=== PATIENT | male | born 1940 | race Caucasian/White ===

== ENCOUNTER → 2019-10-13 | Outpatient (CLI) | payer OTHER | END | disposition home or self-care (01) | LOC: RAH 10:31 | PROVIDERS: ATTEND Internal Medicine Cardiovascular Disease | DX: Z13.6 Encounter for screening for cardiovascular disorders (principal) | CPT/HCPCS: 75571 ==

== ENCOUNTER → 2019-11-22 | Outpatient (CLI) | payer MEDICARE ==
[~2019-11-22] VITALS: Ht 175.3 cm; Wt 106.7 kg
[~2019-11-22] MED LIST: ALLO100T PO; AMLO-258 PO; ASPI-1443 PO; ATOR10TA69 PO; CEFUROXIME SODIUM 1.5 GM VIAL IVP SCH; CHLO25TA3 PO; DOCU50CA13 PO; LEVO75TA4 PO; LORA-997 PO; OMEG-148 PO; TAMS-1 PO; [UNRECOGNIZED DRUG - CODE] PO; gabapentin PO
[2019-11-22 10:25] VITALS: BP 154/67
[2019-11-22 10:50] LABS: BASOPHILS % (AUTO) 0.5 % (0.0-5.0); EOSINOPHILS % (AUTO) 2.6 % (0.0-8.0); HEMATOCRIT 39.8 % (42-54); LYMPHOCYTES % (AUTO) 17.7 % (21.0-51.0); MEAN CORPUSCULAR HEMOGLOBIN 25.6 pg (27.0-33.0); MEAN CORPUSCULAR HGB CONC 30.2 g/dL (32.0-36.0); MEAN CORPUSCULAR VOLUME 84.9 fL (79-99); MONOCYTES % (AUTO) 11.6 % (3.0-13.0); NEUTROPHILS % (AUTO) 67.2 % (40.0-77.0); PLATELET COUNT (AUTO) 243 K/uL (130-400); RED BLOOD CELL COUNT(AUTO) 4.69 MIL/uL (4.50-6.20); RED CELL DISTRIBUTION WIDTH 15.5 % (11.0-15.5); WHITE BLOOD COUNT (AUTO) 7.8 K/uL (4.8-10.8)
[2019-11-22 11:03] LABS: ALBUMIN 3.6 g/dL (3.5-5.0); BILIRUBIN,TOTAL 0.3 mg/dL (0.2-1.0); CREATININE 1.1 mg/dL (0.5-1.5); POTASSIUM 4.3 mmol/L (3.5-5.1)
[2019-11-22 11:08] LABS: INR 0.98 (0.85-1.15); PARTIAL THROMBOPLASTIN TIME 23.7 SEC (26.3-35.5); PROTHROMBIN TIME 10.6 SEC (9.6-11.6)
[2019-11-22 11:16] LABS: HEMOGLOBIN A1C 6.4 % (4.0-6.0)
== END | disposition home or self-care (01) ==
LOC: DAH 10:00 → EDSTATUS 11-25 09:00
PROVIDERS: ATTEND Thoracic Surgery (Cardiothoracic Vascular Surgery)
DX: Z01.818 Encounter for other preprocedural examination (principal); Z20.828 Contact with and (suspected) exposure to other viral communicable diseases; I65.23 Occlusion and stenosis of bilateral carotid arteries; Z95.1 Presence of aortocoronary bypass graft
CPT/HCPCS: 36415; 71046; 80053; 83036; 85025; 85610; 85730; 93005; 93880; 94010; A6260; U0003; 86850; 86900; 86901; 86922; J0697

== ENCOUNTER → 2019-11-24 | Outpatient (CLI) | payer MEDICARE ==
[~2019-11-24] MED LIST changes: -CEFUROXIME SODIUM 1.5 GM VIAL IVP SCH
== END | disposition home or self-care (01) ==
LOC: DAH 11-22 10:00
PROVIDERS: ATTEND Thoracic Surgery (Cardiothoracic Vascular Surgery)
DX: Z01.818 Encounter for other preprocedural examination (principal); I25.10 Atherosclerotic heart disease of native coronary artery without angina pectoris
CPT/HCPCS: 36415; 86850; 86900; 86901; 86922

== ENCOUNTER → 2020-05-25 | Outpatient (CLI) | payer MEDICARE | END | disposition home or self-care (01) | LOC: RAH 08:01 | PROVIDERS: ATTEND Internal Medicine Cardiovascular Disease | DX: R06.09 Other forms of dyspnea (principal) | CPT/HCPCS: 93306; 93356 ==

== ENCOUNTER → 2020-05-29 | Outpatient (CLI) | payer MEDICARE ==
[~2020-05-29] VITALS: Ht 177.8 cm; Wt 112.5 kg
[~2020-05-29] MED LIST changes: +REGADENOSON 0.4 MG/5 ML PF SYG IVP SCH
== END | disposition home or self-care (01) ==
LOC: SHCH 07:48
PROVIDERS: ATTEND Internal Medicine Cardiovascular Disease
DX: I51.7 Cardiomegaly (principal); I25.9 Chronic ischemic heart disease, unspecified; I25.10 Atherosclerotic heart disease of native coronary artery without angina pectoris
CPT/HCPCS: 78452; 93017; 96374; A9500 ×2

== ENCOUNTER 2020-06-12 05:44 | Day surgery (SDC) | payer MEDICARE ==
[2020-06-09 13:20] LABS: BASOPHILS % (AUTO) 0.6 % (0.0-5.0); EOSINOPHILS % (AUTO) 2.9 % (0.0-8.0); HEMATOCRIT 37.8 % (42-54); LYMPHOCYTES % (AUTO) 19.7 % (21.0-51.0); MEAN CORPUSCULAR HGB CONC 29.4 g/dL (32.0-36.0); MEAN CORPUSCULAR VOLUME 78.4 fL (79-99); MONOCYTES % (AUTO) 11.8 % (3.0-13.0); NEUTROPHILS % (AUTO) 64.3 % (40.0-77.0); PLATELET COUNT (AUTO) 256 K/uL (130-400); RED BLOOD CELL COUNT(AUTO) 4.82 MIL/uL (4.50-6.20); WHITE BLOOD COUNT (AUTO) 7.3 K/uL (4.8-10.8)
[2020-06-09 13:23] LABS: APPEARANCE,URINE Clear (CLEAR); BILIRUBIN,URINE Negative (NEGATIVE); COLOR,URINE Yellow (YELLOW); GLUCOSE, URINE (UA) Negative (NEGATIVE); KETONES,URINE Negative (NEGATIVE); LEUKOCYTE ESTERASE ,URINE Negative (NEGATIVE); NITRATE,URINE Negative (NEGATIVE); OCCULT BLOOD,URINE Negative (NEGATIVE); PROTEIN,URINE Negative (NEGATIVE); UROBILINOGEN,URINE 0.2 mg/dL (0.2-1.0)
[2020-06-09 13:31] LABS: CREATININE 1.2 mg/dL (0.5-1.5)
[2020-06-09 13:38] LABS: INR 1.06 (0.85-1.15); PROTHROMBIN TIME 11.5 SEC (9.6-11.6)
[2020-06-09 13:39] LABS: PARTIAL THROMBOPLASTIN TIME 25.6 SEC (26.3-35.5)
[2020-06-09 13:57] VITALS: BP 143/53
[~2020-06-12] VITALS: Ht 177.8 cm; Wt 113.8 kg
[2020-06-12] VITALS (9 sets, daily range): BP systolic 18–126; BP diastolic 55–56
[~2020-06-12 05:44] MED LIST changes: -ATOR10TA69 PO; +ATOR40TA71 PO; -CHLO25TA3 PO; -DOCU50CA13 PO; +FURO20TA4 PO; +GABA600T10 PO; -LORA-997 PO; +LOSA25TA41 PO; -REGADENOSON 0.4 MG/5 ML PF SYG IVP SCH; -[UNRECOGNIZED DRUG - CODE] PO; -gabapentin PO
[2020-06-12] MEDS ORDERED: SODIUM CHLORIDE 0.9% 1000ML 1,000 ML IV ONE (06:13)
[2020-06-12] MEDS ORDERED: PHARMACY COMMUNICATION MISC SCH (06:45)
[2020-06-12] MEDS ORDERED: IOHEXOL 350 MG/ML 100ML INFUS..BTL IV ONE ×2 (07:09→07:52)
[2020-06-12] MEDS ORDERED: NITROGLYCERIN 2 MG/VIAL VIAL IV ONE (07:09)
[2020-06-12] MEDS ORDERED: IOHEXOL-350 50ML VIAL IV ONE (07:10)
[2020-06-12] MEDS ORDERED: LIDOCAINE HCL 2% 20ML ONE (07:10)
== END 2020-06-12 12:30 | disposition home or self-care (01) ==
LOC: DAH 05:44
PROVIDERS: ATTEND Internal Medicine Cardiovascular Disease
DX: I25.119 Atherosclerotic heart disease of native coronary artery with unspecified angina pectoris (principal); I11.0 Hypertensive heart disease with heart failure; I50.32 Chronic diastolic (congestive) heart failure; E11.9 Type 2 diabetes mellitus without complications; I44.2 Atrioventricular block, complete; M10.9 Gout, unspecified; E03.9 Hypothyroidism, unspecified; G47.33 Obstructive sleep apnea (adult) (pediatric); E78.5 Hyperlipidemia, unspecified; I73.00 Raynaud's syndrome without gangrene; I35.0 Nonrheumatic aortic (valve) stenosis; I45.10 Unspecified right bundle-branch block; Z79.82 Long term (current) use of aspirin; Z79.01 Long term (current) use of anticoagulants; Z79.890 Hormone replacement therapy; Z98.890 Other specified postprocedural states; Z82.49 Family history of ischemic heart disease and other diseases of the circulatory system; Z79.899 Other long term (current) drug therapy; Z90.49 Acquired absence of other specified parts of digestive tract
CPT/HCPCS: 36415; 71045; 80048; 81003; 82948 ×2; 85025; 85610; 85730; 93005; 93459; A4215; A4216; A4221; A4223 ×3; A4606; A4663; C1760 ×2; C1769; C1894; J1644; J3490 ×2; J7030; Q9965 ×2; Q9967 ×3

== ENCOUNTER 2021-07-05 07:38 | Day surgery (SDC) | payer MEDICARE ==
[2021-07-03 15:22] LABS: BASOPHILS % (AUTO) 0.4 % (0.0-5.0); EOSINOPHILS % (AUTO) 2.2 % (0.0-8.0); HEMATOCRIT 40.8 % (42-54); LYMPHOCYTES % (AUTO) 17.3 % (21.0-51.0); MEAN CORPUSCULAR HGB CONC 31.1 g/dL (32.0-36.0); MEAN CORPUSCULAR VOLUME 86.6 fL (79-99); MONOCYTES % (AUTO) 11.2 % (3.0-13.0); PLATELET COUNT (AUTO) 230 K/uL (130-400); RED BLOOD CELL COUNT(AUTO) 4.71 MIL/uL (4.50-6.20); RED CELL DISTRIBUTION WIDTH 16.7 % (11.0-15.5)
[2021-07-03 15:29] LABS: CREATININE 1.5 mg/dL (0.5-1.5); POTASSIUM 4.4 mmol/L (3.5-5.1)
[2021-07-03 15:31] LABS: PROTHROMBIN TIME 10.9 SEC (9.6-11.6)
[2021-07-03 15:32] LABS: PARTIAL THROMBOPLASTIN TIME 25.3 SEC (26.3-35.5)
[2021-07-03 15:44] LABS: B-TYPE NATRIURETIC PEPTIDE 29 pg/mL (0-100)
[2021-07-04 14:48] VITALS: BP 140/64
[~2021-07-05] VITALS: Ht 177.8 cm; Wt 113.5 kg
[2021-07-05] VITALS (20 sets, daily range): BP systolic 110–134; BP diastolic 49–62
[~2021-07-05 07:38] MED LIST changes: +ALBU8.5H8 IH; -AMLO-258 PO; -ATOR40TA71 PO; +CETI-193 PO; +CHOL500051 PO; +DOCU50CA13 PO; +FLUT16H NASAL; +FLUT1AER IH; +LACT10SO5 PO; -LOSA25TA41 PO; +Losartan PO; +METO-408 PO; +NITR0.4T50 SL; +RANO500T2 PO
[2021-07-05] MEDS ORDERED: HEPARIN 10,000 UNIT/10ML (1,000 UNIT/ML) VIAL ONE ×2 (08:31→09:43)
[2021-07-05] MEDS ORDERED: IOHEXOL-350 50ML VIAL IV ONE (08:31)
[2021-07-05] MEDS ORDERED: NITROGLYCERIN 50MG VIAL ONE (08:31)
[2021-07-05] MEDS ORDERED: LIDOCAINE HCL 1% MDV 50ML VIAL ONE (08:32)
[2021-07-05] MEDS ORDERED: IOHEXOL-350 75 ML VIAL IV ONE (08:32)
[2021-07-05] MEDS ORDERED: SOLU-MEDROL 125MG VIAL ONE (08:37)
[2021-07-05] MEDS ORDERED: DIPH25TA51 PO (09:04)
[2021-07-05] MEDS ORDERED: PRED20TA3 PO (09:04)
[2021-07-05] MEDS ORDERED: 0.9%NACL 1000ML 1,000 ML IV ONE (09:05)
[2021-07-05] MEDS ORDERED: ATROPINE 1MG SYG IVP ONE ×2 (09:33→10:18)
== END 2021-07-05 15:00 | disposition home or self-care (01) ==
LOC: DAH 07:38
PROVIDERS: ATTEND Internal Medicine Cardiovascular Disease
DX: I25.119 Atherosclerotic heart disease of native coronary artery with unspecified angina pectoris (principal); I25.82 Chronic total occlusion of coronary artery; I11.0 Hypertensive heart disease with heart failure; I50.32 Chronic diastolic (congestive) heart failure; E11.9 Type 2 diabetes mellitus without complications; I73.00 Raynaud's syndrome without gangrene; I35.0 Nonrheumatic aortic (valve) stenosis; I45.10 Unspecified right bundle-branch block; E03.9 Hypothyroidism, unspecified; M10.9 Gout, unspecified; G47.33 Obstructive sleep apnea (adult) (pediatric); E78.5 Hyperlipidemia, unspecified; Z98.890 Other specified postprocedural states; Z95.1 Presence of aortocoronary bypass graft; Z79.01 Long term (current) use of anticoagulants; Z79.899 Other long term (current) drug therapy
CPT/HCPCS: 36415; 71045; 80048; 83880; 85025; 85610; 85730; 93005; 93459; A4215; A4216; A4221; A4222; A4223 ×3; A4606; A4663; C1769; C1894; J1644 ×3; J2930; J3490 ×2; J7030; Q9967; J0461

== ENCOUNTER 2022-11-17 12:00 | Inpatient (IN) | payer MEDICARE ==
[~2022-11-17] VITALS: Ht 177.8 cm; Wt 104.9 kg
[~2022-11-17 12:00] MED LIST changes: +DIPH25TA51 PO; -OMEG-148 PO; +PRED20TA3 PO
[2022-11-17 12:26] LABS: BASOPHILS # (AUTO) 0.04 K/uL (0.00-0.20); BASOPHILS % (AUTO) 0.5 % (0.0-5.0); EOSINOPHILS # (AUTO) 0.17 K/uL (0.00-0.70); EOSINOPHILS % (AUTO) 2.2 % (0.0-8.0); HEMATOCRIT 43.6 % (42-54); IMMATURE GRANULOCYTE ABSOLUTE 0.08 K/uL (0-1); LYMPHOCYTES # (AUTO) 1.4 K/uL (1.0-4.8); LYMPHOCYTES % (AUTO) 18.7 % (21.0-51.0); MEAN CORPUSCULAR HEMOGLOBIN 27.6 pg (27.0-33.0); MEAN CORPUSCULAR HGB CONC 31.7 g/dL (32.0-36.0); MEAN CORPUSCULAR VOLUME 87.2 fL (79-99); MONOCYTES # (AUTO) 0.8 K/uL (0.1-1.0); MONOCYTES % (AUTO) 9.7 % (3.0-13.0); NEUTROPHILS # (AUTO) 5.2 K/uL (1.8-7.7); NEUTROPHILS % (AUTO) 67.9 % (40.0-77.0); PLATELET COUNT (AUTO) 215 K/uL (130-400); RED CELL DISTRIBUTION WIDTH 15.3 % (11.0-15.5); WHITE BLOOD COUNT (AUTO) 7.7 K/uL (4.8-10.8)
[2022-11-17 12:34] LABS: CREATININE 1.3 mg/dL (0.5-1.5); POTASSIUM 4.3 mmol/L (3.5-5.1)
[2022-11-17 12:38] LABS: SARS-CoV-2, RNA, NAAT NEGATIVE SARS CoV-2 (NEGATIVE)
[2022-11-17 12:44] LABS: ALBUMIN 3.9 g/dL (3.5-5.0); BILIRUBIN,TOTAL 0.4 mg/dL (0.2-1.0); TOTAL PROTEIN, SERUM 7.3 g/dL (6.0-8.3)
[2022-11-17 12:46] LABS: INFLUENZA TYPE A Negative For Type A (NEGATIVE)
[2022-11-17 12:55] LABS: INFLUENZA TYPE B Positive For Type B (NEGATIVE)
[2022-11-17 13:05] LABS: APPEARANCE,URINE CLEAR (CLEAR); BILIRUBIN,URINE NEGATIVE (NEGATIVE); COLOR,URINE LIGHT-YELLOW (YELLOW); GLUCOSE, URINE (UA) NEGATIVE (NEGATIVE); KETONES,URINE NEGATIVE (NEGATIVE); LEUKOCYTE ESTERASE ,URINE NEGATIVE Leu/uL (NEGATIVE); NITRATE,URINE NEGATIVE (NEGATIVE); OCCULT BLOOD,URINE NEGATIVE (NEGATIVE); PROTEIN,URINE NEGATIVE (NEGATIVE); UROBILINOGEN,URINE 0.2 mg/dL (0.2-1.0)
[2022-11-17 13:06] LABS: ADD UA MICROSCOPIC NO
[2022-11-17 13:11] LABS: B-TYPE NATRIURETIC PEPTIDE 35 pg/mL (0-100)
[2022-11-17] MEDS ORDERED: CLOP75TA32 PO (14:49)
[2022-11-17] MEDS ORDERED: ATOR40TA71 PO (14:49)
[2022-11-17] MEDS ORDERED: GABA600T10 PO (14:49)
[2022-11-17] MEDS ORDERED: LOSA25TA41 PO (14:49)
[2022-11-17] MEDS ORDERED: FURO20TA4 PO (14:49)
[2022-11-17] MEDS ORDERED: ALBUTEROL SULFATE IH PRN (15:30)
[2022-11-17] MEDS ORDERED: NITROGLYCERIN 0.4 MG SL TAB SL PRN (15:30)
[2022-11-17 15:56] LABS: THYROID STIMULATING HORMONE 3.99 uIU/mL (0.36-3.74)
[2022-11-17 16:00] VITALS: BP 162/70; PULSE 57; RESP 22
[2022-11-17 16:52] VITALS: O2SAT 96
[2022-11-17 18:52] VITALS: BP 131/77; PULSE 69; RESP 18
[2022-11-17 20:00] VITALS: O2SAT 96
[2022-11-17] MEDS ORDERED: NON-FORMULARY MEDICATION 1 EACH (Gabapentin 600 MG) PO SCH (21:00)
[2022-11-17] MEDS: ATORVASTATIN 40 MG TABLET PO SCH (21:30)
[2022-11-17] MEDS: LOSARTAN 25 MG TABLET PO SCH (21:30)
[2022-11-17] MEDS: ALLOPURINOL 100 MG TABLET PO SCH (21:30)
[2022-11-17] MEDS: GABAPENTIN 300 MG CAPSULE PO SCH (21:31)
[2022-11-17] MEDS: OSELTAMIVIR PHOSPHATE 75 MG CAP PO SCH (21:34)
[2022-11-17 23:11] VITALS: BP 132/80; PULSE 52; RESP 18
[2022-11-18] VITALS (9 sets, daily range): BP systolic 105–149; BP diastolic 49–84; PULSE 43–60; RESP 18–22; O2SAT 96–97
[2022-11-18 03:36] LABS: BASOPHILS # (AUTO) 0.04 K/uL (0.00-0.20); BASOPHILS % (AUTO) 0.4 % (0.0-5.0); EOSINOPHILS % (AUTO) 2.2 % (0.0-8.0); HEMATOCRIT 38.1 % (42-54); IMMATURE GRANULOCYTE ABSOLUTE 0.05 K/uL (0-1); LYMPHOCYTES # (AUTO) 1.5 K/uL (1.0-4.8); LYMPHOCYTES % (AUTO) 16.4 % (21.0-51.0); MEAN CORPUSCULAR HEMOGLOBIN 27.3 pg (27.0-33.0); MEAN CORPUSCULAR VOLUME 88.2 fL (79-99); MONOCYTES # (AUTO) 1.2 K/uL (0.1-1.0); MONOCYTES % (AUTO) 13.4 % (3.0-13.0); PLATELET COUNT (AUTO) 195 K/uL (130-400); RED BLOOD CELL COUNT(AUTO) 4.32 MIL/uL (4.50-6.20); RED CELL DISTRIBUTION WIDTH 15.2 % (11.0-15.5); WHITE BLOOD COUNT (AUTO) 8.9 K/uL (4.8-10.8)
[2022-11-18 04:23] LABS: CREATININE 1.1 mg/dL (0.5-1.5); POTASSIUM 4.3 mmol/L (3.5-5.1)
[2022-11-18] MEDS: LEVOTHYROXINE 75 MCG TABLET PO SCH (06:19)
[2022-11-18] MEDS ORDERED: FLUTICASONE/VILANTEROL 1 EACH AER.POW.BA IH SCH (09:00)
[2022-11-18] MEDS: ALLOPURINOL 100 MG TABLET PO SCH ×2 (09:18→21:10)
[2022-11-18] MEDS: CLOPIDOGREL 75MG TAB PO SCH (09:19)
[2022-11-18] MEDS: TAMSULOSIN HCL 0.4 MG CAP.ER.24H PO SCH (09:19)
[2022-11-18] MEDS: OSELTAMIVIR PHOSPHATE 75 MG CAP PO SCH (09:19)
[2022-11-18] MEDS: ASPIRIN 81 MG EC TAB PO SCH (09:22)
[2022-11-18] MEDS: ATORVASTATIN 40 MG TABLET PO SCH (21:09)
[2022-11-18] MEDS: GABAPENTIN 300 MG CAPSULE PO SCH (21:10)
[2022-11-18] MEDS: LOSARTAN 25 MG TABLET PO SCH (21:10)
[2022-11-19] VITALS: BP 133/55; PULSE 62; RESP 21
[2022-11-19 04:00] VITALS: BP 107/47; PULSE 56; RESP 21
[2022-11-19 04:22] LABS: HEMATOCRIT 40.1 % (42-54); MEAN CORPUSCULAR HEMOGLOBIN 27.2 pg (27.0-33.0); MEAN CORPUSCULAR HGB CONC 31.4 g/dL (32.0-36.0); MEAN CORPUSCULAR VOLUME 86.6 fL (79-99); RED BLOOD CELL COUNT(AUTO) 4.63 MIL/uL (4.50-6.20); RED CELL DISTRIBUTION WIDTH 15.2 % (11.0-15.5)
[2022-11-19 04:55] LABS: ALBUMIN 3.5 g/dL (3.5-5.0); BILIRUBIN,TOTAL 0.6 mg/dL (0.2-1.0); CREATININE 1.3 mg/dL (0.5-1.5); MAGNESIUM 1.9 mg/dL (1.80-2.40); POTASSIUM 4.1 mmol/L (3.5-5.1); TOTAL PROTEIN, SERUM 6.7 g/dL (6.0-8.3)
[2022-11-19] MEDS: LEVOTHYROXINE 75 MCG TABLET PO SCH (05:33)
[2022-11-19] MEDS: REGADENOSON 0.4 MG/5 ML PF SYG IVP SCH ×2 (07:00→09:11)
[2022-11-19 08:00] VITALS: O2SAT 95
[2022-11-19 08:01] VITALS: BP 113/53; PULSE 61; RESP 16
[2022-11-19] MEDS ORDERED: BREO ELLIPTA IH SCH (09:00)
[2022-11-19] MEDS ORDERED: FUROSEMIDE 20 MG TABLET PO SCH (09:00)
[2022-11-19] MEDS: CLOPIDOGREL 75MG TAB PO SCH (09:04)
[2022-11-19] MEDS: TAMSULOSIN HCL 0.4 MG CAP.ER.24H PO SCH (09:04)
[2022-11-19] MEDS: OSELTAMIVIR PHOSPHATE 75 MG CAP PO SCH (09:04)
[2022-11-19] MEDS: ALLOPURINOL 100 MG TABLET PO SCH (09:04)
[2022-11-19] MEDS: ASPIRIN 81 MG EC TAB PO SCH (09:04)
[2022-11-19 12:00] VITALS: BP 110/60; PULSE 68; RESP 16
[2022-11-19] MEDS ORDERED: OSEL75 PO (15:12)
== END 2022-11-19 15:49 | disposition home or self-care (01) | DRG 194 ==
LOC: EDH 12:00 → EDHIP 15:06 → 2AH 16:16
PROVIDERS: ADMIT Internal Medicine; ATTEND Internal Medicine
PROC: 4A02XM4 Measurement of Cardiac Total Activity, External Approach (ICD-10-PCS; principal; 2022-11-19)
PROC: 3E033HZ Introduction of Radioactive Substance into Peripheral Vein, Percutaneous Approach (ICD-10-PCS; 2022-11-19)
DX: J10.1 Influenza due to other identified influenza virus with other respiratory manifestations (principal); I25.110 Atherosclerotic heart disease of native coronary artery with unstable angina pectoris; Z20.822 Contact with and (suspected) exposure to COVID-19; G47.33 Obstructive sleep apnea (adult) (pediatric); Z68.34 Body mass index [BMI] 34.0-34.9, adult; E66.9 Obesity, unspecified; I45.10 Unspecified right bundle-branch block; E03.9 Hypothyroidism, unspecified; E11.9 Type 2 diabetes mellitus without complications; E78.00 Pure hypercholesterolemia, unspecified; I10 Essential (primary) hypertension; I73.00 Raynaud's syndrome without gangrene; J44.9 Chronic obstructive pulmonary disease, unspecified; N40.0 Benign prostatic hyperplasia without lower urinary tract symptoms; Z85.820 Personal history of malignant melanoma of skin; Z95.1 Presence of aortocoronary bypass graft; Z88.8 Allergy status to other drugs, medicaments and biological substances; Z91.041 Radiographic dye allergy status
CPT/HCPCS: 36415; 71045; 78452; 80048; 80053; 81003; 82550; 82607; 82746; 83735; 83874; 83880; 84145; 84439; 84443; 84481; 84484; 85025; 85027; 86140; 87635; 87804; 93005; 93017; 94660; 96374; A9500; C9803; G0378; J2785

== ENCOUNTER → 2022-12-12 | Outpatient (CLI) | payer MEDICARE ==
[~2022-12-12] MED LIST changes: +ATOR40TA71 PO; -CHOL500051 PO; +CLOP75TA32 PO; -DIPH25TA51 PO; -FLUT16H NASAL; -FLUT1AER IH; -LACT10SO5 PO; +LOSA25TA41 PO; -Losartan PO; +OSEL75 PO
== END | disposition home or self-care (01) ==
LOC: SHCH 09:05
PROVIDERS: ATTEND Internal Medicine Cardiovascular Disease
DX: I35.0 Nonrheumatic aortic (valve) stenosis (principal); I25.10 Atherosclerotic heart disease of native coronary artery without angina pectoris; E11.9 Type 2 diabetes mellitus without complications; I51.7 Cardiomegaly
CPT/HCPCS: 93306

== ENCOUNTER 2022-12-27 06:13 | Observation (INO) | payer MEDICARE ==
[2022-12-25 13:52] LABS: APPEARANCE,URINE CLEAR (CLEAR); BILIRUBIN,URINE NEGATIVE (NEGATIVE); COLOR,URINE LIGHT-YELLOW (YELLOW); GLUCOSE, URINE (UA) NEGATIVE (NEGATIVE); KETONES,URINE NEGATIVE (NEGATIVE); LEUKOCYTE ESTERASE ,URINE NEGATIVE Leu/uL (NEGATIVE); NITRATE,URINE NEGATIVE (NEGATIVE); OCCULT BLOOD,URINE NEGATIVE (NEGATIVE); PROTEIN,URINE NEGATIVE (NEGATIVE); UROBILINOGEN,URINE 0.2 mg/dL (0.2-1.0)
[2022-12-25 13:53] LABS: BASOPHILS # (AUTO) 0.04 K/uL (0.00-0.20); BASOPHILS % (AUTO) 0.4 % (0.0-5.0); EOSINOPHILS # (AUTO) 0.16 K/uL (0.00-0.70); EOSINOPHILS % (AUTO) 1.6 % (0.0-8.0); HEMATOCRIT 44.2 % (42-54); IMMATURE GRANULOCYTE ABSOLUTE 0.15 K/uL (0-1); LYMPHOCYTES # (AUTO) 1.5 K/uL (1.0-4.8); LYMPHOCYTES % (AUTO) 14.8 % (21.0-51.0); MEAN CORPUSCULAR HEMOGLOBIN 26.7 pg (27.0-33.0); MEAN CORPUSCULAR VOLUME 86.2 fL (79-99); MONOCYTES # (AUTO) 1.1 K/uL (0.1-1.0); MONOCYTES % (AUTO) 10.7 % (3.0-13.0); NEUTROPHILS # (AUTO) 7.1 K/uL (1.8-7.7); PLATELET COUNT (AUTO) 240 K/uL (130-400); RED BLOOD CELL COUNT(AUTO) 5.13 MIL/uL (4.50-6.20); RED CELL DISTRIBUTION WIDTH 15.2 % (11.0-15.5)
[2022-12-25 14:00] LABS: CREATININE 1.2 mg/dL (0.5-1.5); POTASSIUM 4.1 mmol/L (3.5-5.1)
[2022-12-25 14:00] LABS: ADD UA MICROSCOPIC NO
[2022-12-25 14:03] LABS: INR 0.98 (0.85-1.15); PROTHROMBIN TIME 11.4 SEC (9.6-11.6)
[2022-12-25 14:04] LABS: PARTIAL THROMBOPLASTIN TIME 26.1 SEC (26.3-35.5)
[2022-12-25 14:28] LABS: B-TYPE NATRIURETIC PEPTIDE 13 pg/mL (0-100)
[2022-12-25 15:01] VITALS: BP 155/65; PULSE 73; RESP 18
[~2022-12-27] VITALS: Ht 177.8 cm; Wt 103.7 kg
[2022-12-27] VITALS (11 sets, daily range): BP systolic 107–173; BP diastolic 56–86; PULSE 61–73; RESP 19–20; O2SAT 97–98
[~2022-12-27 06:13] MED LIST changes: +ASPI-1005 PO; -ASPI-1443 PO; +BREO ELLIPTA IH; -CETI-193 PO; -DOCU50CA13 PO; +FLUTICASONE NS; -GABA600T10 PO; -METO-408 PO; -OSEL75 PO; -PRED20TA3 PO; -RANO500T2 PO; +VITAMIN D3 PO
[2022-12-27] MEDS ORDERED: SOLU-MEDROL 125MG VIAL ONE (06:49)
[2022-12-27] MEDS ORDERED: 0.9%NACL 1000ML 1,000 ML IV ONE (06:49)
[2022-12-27] MEDS ORDERED: LIDOCAINE HCL 400MG/20ML VIAL ONE (09:51)
[2022-12-27] MEDS ORDERED: IOHEXOL 350 MG/ML 100ML INFUS..BTL IV ONE ×3 (09:51→11:04)
[2022-12-27] MEDS ORDERED: HEPARIN 10,000 UNIT/10ML (1,000 UNIT/ML) VIAL ONE (11:03)
[2022-12-27] MEDS ORDERED: HYDRALAZINE 20MG/ML VIAL ONE (12:07)
[2022-12-27] MEDS ORDERED: CLOPIDOGREL 75MG TAB ONE (12:23)
[2022-12-27] MEDS ORDERED: ONDANSETRON 4MG INJ IVP PRN (12:30)
[2022-12-27] MEDS ORDERED: TEMAZEPAM 30 MG CAP PO PRN (12:30)
[2022-12-27] MEDS ORDERED: MORPHINE 5 MG/ML VIAL (5MG OR GREATER DOSE) IVP SCH ×2 (12:30)
[2022-12-27] MEDS ORDERED: ONDANSETRON 4MG INJ IVP SCH (12:30)
[2022-12-27] MEDS ORDERED: NITROGLYCERIN 50MG/D5W 250ML 1 BOT IV PRN (12:30)
[2022-12-27] MEDS ORDERED: ACETAMINOPHEN WITH CODEINE 1 TAB TAB PO PRN ×2 (12:30)
[2022-12-27] MEDS ORDERED: NITROGLYCERIN 0.4 MG SL TAB SL PRN (12:30)
[2022-12-27] MEDS ORDERED: FLUTICASONE NS PRN (12:30)
[2022-12-27] MEDS ORDERED: ALBUTEROL SULFATE IH PRN (12:30)
[2022-12-27] MEDS ORDERED: CLOPIDOGREL 300MG TAB PO SCH (12:30)
[2022-12-27] MEDS ORDERED: ALBUTEROL 0.083% 2.5 MG/3 ML INH IH PRN (15:00)
[2022-12-27] MEDS: ALLOPURINOL 100 MG TABLET PO SCH (20:44)
[2022-12-27] MEDS ORDERED: LOSARTAN 25 MG TABLET PO SCH (21:00)
[2022-12-27] MEDS ORDERED: ATORVASTATIN 40 MG TABLET PO SCH (21:00)
[2022-12-28] VITALS: BP 127/45; PULSE 50; RESP 18
[2022-12-28 04:00] VITALS: BP 117/60; PULSE 57; RESP 20
[2022-12-28 04:39] LABS: CREATININE 1.3 mg/dL (0.5-1.5); POTASSIUM 4.6 mmol/L (3.5-5.1)
[2022-12-28 07:29] VITALS: O2SAT 98
[2022-12-28 08:02] VITALS: BP 106/62; PULSE 53; RESP 18
[2022-12-28] MEDS: ALLOPURINOL 100 MG TABLET PO SCH (08:32)
[2022-12-28] MEDS ORDERED: FLUTICASONE/VILANTEROL 1 EACH AER.POW.BA IH SCH (09:00)
[2022-12-28] MEDS ORDERED: TAMSULOSIN HCL 0.4 MG CAP.ER.24H PO SCH (09:00)
[2022-12-28] MEDS ORDERED: FUROSEMIDE 20 MG TABLET PO SCH (09:00)
[2022-12-28] MEDS ORDERED: FLUTICASONE PROPIONATE 50MCG/SPRAY 16 GM BOTTLE EN SCH (09:00)
[2022-12-28] MEDS ORDERED: BREO ELLIPTA IH SCH (09:00)
[2022-12-28] MEDS ORDERED: PANTOPRAZOLE 40 MG TAB DR PO SCH (09:00)
[2022-12-28] MEDS ORDERED: LEVOTHYROXINE 75 MCG TABLET PO SCH (09:00)
[2022-12-28] MEDS ORDERED: CLOPIDOGREL 75MG TAB PO SCH ×2 (09:00)
[2022-12-28] MEDS ORDERED: ASPIRIN 81MG CHEW TAB PO SCH ×2 (09:00)
== END 2022-12-28 10:13 | disposition home or self-care (01) ==
LOC: DAH 06:13 → DAHIP 06:14 → 2DH 12:57
PROVIDERS: ADMIT Internal Medicine Cardiovascular Disease; ATTEND Internal Medicine Cardiovascular Disease
DX: I25.119 Atherosclerotic heart disease of native coronary artery with unspecified angina pectoris (principal); I45.10 Unspecified right bundle-branch block; I35.2 Nonrheumatic aortic (valve) stenosis with insufficiency; E11.9 Type 2 diabetes mellitus without complications; E79.0 Hyperuricemia without signs of inflammatory arthritis and tophaceous disease; R06.00 Dyspnea, unspecified; Z95.5 Presence of coronary angioplasty implant and graft; Z88.8 Allergy status to other drugs, medicaments and biological substances; Z79.82 Long term (current) use of aspirin; Z90.89 Acquired absence of other organs
CPT/HCPCS: 80048 ×2; 83880; 85025; 85610; 85730; 81003; 36415 ×2; 71045; 93005 ×3; 93455; 85347 ×2; 94664; A6260; C1769; C1887 ×5; C1894; C1725; C1760 ×3; C1874; C1884; Q9965 ×3; G0378 ×21; J3490; J7030; J2930; J0360; J1644 ×3; Q9967 ×3; A4215; A4223 ×3; A4222; A4221; A4663; A4216; A4606; C9604

== ENCOUNTER → 2024-04-29 | Outpatient (CLI) | payer MEDICARE ==
[~2024-04-29] MED LIST changes: +IOHEXOL 350 MG/ML 100ML INFUS..BTL IV ONE; +Solu-medROL 125MG VIAL ONE; -TAMS-1 PO; +TAMS-55 PO
--- NOTE | 2024-04-29 14:04 | HMCIMG ---
CT OF THE CHEST WITH CONTRAST- CT Cardiac Angio co-interpretation This is done as part of the CT cardiac angiogram study. The interpretation of the coronary arteries will be done by sales and merchandising representative in a separate report. History: over-read Comparison: none CT Dose Index (CTDI): 77.90 mGy Dose Length Product (DLP): 493.40 total mGy PROTOCOL: Examination is done at 2.5 millimeter volumetric acquisition after contrast administration with Isovue 370, 100 cc IV, without complications. Photography is done at 5 millimeter thick intervals for the thorax. The examination begins above the heart and therefore the lung apices are incompletely included. The rest of the left lung is included but the right lung is only included up to its middle third. The periphery of the right lung is not included in the study. FINDINGS: The visualized part of the airway is preserved. The bony and soft tissue structures of the chest wall are unremarkable. The aorta is unremarkable. No mediastinal lymphadenopathy is seen. The lung windows demonstrate no worrisome pulmonary nodules, masses or infiltrates. There is no evidence of pulmonary embolism in the visualized lung segments. The upper abdominal views are unremarkable. Impression: No significant abnormalities identified.
--- NOTE | 2024-05-07 16:12 | CARDIOLOGY ---
RAD REPORT: CORNARY CT ANGIO RADIOLOGY REPORT: CORONARY CT ANGIOGRAPHY DATE: May 07, 2024 QUALITY: Excellent CLINICAL HISTORY AND INDICATION: [ chest pain ] TECHNIQUE: After obtaining a preliminary athletic scout image, contrast imaging performed on an Aquillon [id number] scanner. A dedicated, limited window, coronary imaging protocol was used, with single breath-hold, retrospective ECG gating, and automated arrhythmia rejection. 100 cc of low osmolar contrast agent: Omnipaque 350 was delivered via a 18-gauge IV catheter in the right antecubital fossa, using a power injector and followed by 60 cc of normal saline bolus as a chaser. Collimated images were reformatted at 0.5 mm intervals, and sent to an offline independent workstation for interpretation, using 3D anatomic reconstructions: Curved multiplanar reconstructions, maximum intensity projections, and multiplanar imaging. No metoprolol was administered prior to scanning due to low baseline heart rate. 0.8 mg SL nitroglycerin was given. CORONARY ARTERY DESCRIPTIONS: The coronary arteries arise in normal position. Left main coronary artery: Normal caliber vessel that bifurcates into the LAD and LCx. No stenosis. Left anterior descending coronary artery: Normal caliber vessel and gives rise to diagonal and septal branches. Severely diseased LAD diffusely. Left circumflex coronary artery: Normal caliber, nondominant and gives rise to two OM branches. Due to motion artifact, LCx and its branches are not well visualized. Right coronary artery: Large, dominant vessel giving rise to the PL and PDA branches. Severely calcified ostial RCA with 90% stenosis. The RCA is diffusely calcified and diseased with severe stenosis diffusely. CORONARY ARTERY BYPASS GRAFT DESCRIPTIONS: Patent HAILE to LAD. Beyond the HAILE to LAD anastomosis site, the LAD is small (<2 mm) and is severely diffusely diseased. SVG to OM2. Occluded SVG to RCA. Thoracic Aorta: Normal diameter. Umm Frankel MD Cardiovascular Disease [facility] UMM FRANKEL MD May 07, 2024 16:12
== END | disposition home or self-care (01) ==
LOC: RAH 09:52
PROVIDERS: ATTEND Internal Medicine Cardiovascular Disease
DX: I25.10 Atherosclerotic heart disease of native coronary artery without angina pectoris (principal)
CPT/HCPCS: 75574; J2919; Q9967

== ENCOUNTER 2024-06-15 05:44 | Day surgery (SDC) | payer MEDICARE ==
[2024-06-11 12:42] VITALS: BP 135/60; PULSE 56; RESP 16; TEMP 98
[2024-06-11 12:42] LABS: BASOPHILS # (AUTO) 0.03 K/uL (0.00-0.20); BASOPHILS % (AUTO) 0.4 % (0.0-5.0); EOSINOPHILS # (AUTO) 0.16 K/uL (0.00-0.70); EOSINOPHILS % (AUTO) 1.9 % (0.0-8.0); HEMATOCRIT 42.2 % (42-54); IMMATURE GRANULOCYTE ABSOLUTE 0.09 K/uL (0-1); LYMPHOCYTES # (AUTO) 1.1 K/uL (1.0-4.8); LYMPHOCYTES % (AUTO) 13.3 % (21.0-51.0); MEAN CORPUSCULAR HEMOGLOBIN 30.4 pg (27.0-33.0); MEAN CORPUSCULAR HGB CONC 33.2 g/dL (32.0-36.0); MEAN CORPUSCULAR VOLUME 91.7 fL (79-99); MONOCYTES # (AUTO) 0.9 K/uL (0.1-1.0); MONOCYTES % (AUTO) 10.4 % (3.0-13.0); NEUTROPHILS % (AUTO) 72.9 % (40.0-77.0); PLATELET COUNT (AUTO) 198 K/uL (130-400); RED CELL DISTRIBUTION WIDTH 14.8 % (11.0-15.5); WHITE BLOOD COUNT (AUTO) 8.3 K/uL (4.8-10.8)
[2024-06-11 12:49] LABS: CREATININE 1.6 mg/dL (0.5-1.3); POTASSIUM 4.5 mmol/L (3.5-5.1)
[2024-06-11 12:53] LABS: APPEARANCE,URINE CLEAR (CLEAR); BILIRUBIN,URINE NEGATIVE (NEGATIVE); COLOR,URINE YELLOW (YELLOW); GLUCOSE, URINE (UA) NEGATIVE (NEGATIVE); KETONES,URINE NEGATIVE (NEGATIVE); LEUKOCYTE ESTERASE ,URINE NEGATIVE Leu/uL (NEGATIVE); NITRATE,URINE NEGATIVE (NEGATIVE); OCCULT BLOOD,URINE NEGATIVE (NEGATIVE); PROTEIN,URINE NEGATIVE (NEGATIVE); UROBILINOGEN,URINE 0.2 mg/dL (0.2-1.0)
[2024-06-11 12:59] LABS: INR 1.07 (0.85-1.15); PROTHROMBIN TIME 11.3 SEC (9.6-11.6)
[2024-06-11 13:00] LABS: PARTIAL THROMBOPLASTIN TIME 26.4 SEC (26.3-35.5)
[2024-06-11 13:02] LABS: B-TYPE NATRIURETIC PEPTIDE 57 pg/mL (0-100)
[2024-06-11 13:08] LABS: ADD UA MICROSCOPIC NO
--- NOTE | 2024-06-11 13:15 | EKG ---
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
--- NOTE | 2024-06-11 15:25 | HMCIMG ---
CHEST 1VW HISTORY: Preop COMPARISON: 12/25/2002 FINDINGS: A frontal projection of the chest was obtained. Mild bilateral pulmonary infiltrates are seen may be related to mild pulmonary vascular congestion with possible superimposed pneumonitis. Poststernotomy changes are seen. The heart is enlarged. Degenerative changes of the thoracolumbar spine are present. Degenerative changes are seen No evidence of aortic calcification is seen. IMPRESSION: 1. Mild bilateral pulmonary infiltrates are seen may be related to mild pulmonary vascular congestion with possible superimposed pneumonitis.
--- NOTE | 2024-06-14 12:28 | NUR ---
RE: LABS/CXR REPORTED CXR/BMP RESULTS TO NEIDA RUTH NP. NO NEW ORDERS RECEIVED. Addendum: 06/14/24 at 1519 by KEYSHAWN CARO RN RN RECEIVED ORDERS FOR NS AT 80ML/HR ON ARRIVAL
[2024-06-15] VITALS (11 sets, daily range): BP systolic 124–156; BP diastolic 44–68; PULSE 51–64; RESP 14–18; TEMP 97.2–98.4
[~2024-06-15] VITALS: Ht 172.7 cm; Wt 100.0 kg
[~2024-06-15 05:44] MED LIST changes: -ALBU8.5H8 IH; -ATOR40TA71 PO; -BREO ELLIPTA IH; +CALC-866 PO; -FLUTICASONE NS; -IOHEXOL 350 MG/ML 100ML INFUS..BTL IV ONE; -LEVO75TA4 PO; +LEVO88TA7 PO; +METO25TA6 PO; +RANO500T6 PO; +ROSU40TA88 PO; -Solu-medROL 125MG VIAL ONE; -VITAMIN D3 PO
[2024-06-15] MEDS: Solu-medROL 125MG VIAL IVP ONE (06:47)
[2024-06-15] MEDS: 0.9%NACL 1000ML 1,000 ML IV SCH (06:47)
[2024-06-15] MEDS ORDERED: LIDOCAINE HCL 400MG/20ML VIAL ONE (07:04)
[2024-06-15] MEDS ORDERED: IOHEXOL 350 MG/ML 100ML INFUS..BTL IV ONE (07:05)
[2024-06-15] MEDS ORDERED: HEParin-NS 1,000 UNIT/500 ML 1,000 ML IV ONE (07:05)
[2024-06-15] MEDS ORDERED: HEParin 10,000 UNIT/10ML (1,000 UNIT/ML) VIAL ONE (07:05)
[2024-06-15] MEDS ORDERED: NITROGLYCERIN 50MG VIAL ONE (07:05)
[2024-06-15] MEDS ORDERED: MIDAZOLAM HCL 1 MG/ML 2ML VIAL ONE (07:24)
[2024-06-15] MEDS ORDERED: FENTanyl CITRate PF 50 MCG/1 ML 2ML VIAL ONE (07:24)
[2024-06-15] MEDS ORDERED: ATROPINE 1MG SYG IVP ONE (08:16)
--- NOTE | 2024-06-15 09:33 | PRN ---
Cath Procedure Report CATH PROCEDURE REPORT CARDIAC CATHETERIZATION REPORT Date of Service: June 15, 2024 The patient was scheduled today for intervention on the ostial RCA. He has a history of previous bypass surgery. In December of 2023 the HAILE graft to the LAD was patent the vein graft to the obtuse marginal artery was patent and there was a 90% stenosis in the vein graft to the RCA with a 90% ostial RCA with high takeoff. At that time attempts to open up the [place] circulation were unsuccessful due to high takeoff of the [place] right coronary artery. He received a stent to the proximal saphenous graft. 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 He was now brought back to the catheterization laboratory for attempts at intervention on the [place] right coronary artery. He has a history of iodine allergy and was premedicated with steroids both orally and home and intravenously here in the hospital. He was prepped and draped in the usual fashion. He received a total of 15 cc of xylocaine in the right inguinal area. A six Anguillan sheath was introduced into the right femoral artery using modified Seldinger technique. A Carmelo four right six Anguillan guiding catheter with side holes was advanced over guidewire to the aortic root. Catheter was engaged into the vein graft to the right coronary artery which was documented to be occluded as suggested by the CCTA. Times to cannulate the ostial RCA with the JR4 right guiding catheter with side holes was unsuccessful due to high takeoff. After that multiple catheters were attempted including an ART one and a RT to AL1. Hockey-stick guiding catheter IM catheter and multipurpose catheter. The most success was obtained with an Ikari 1.5 six Anguillan guiding catheter but even with this catheter a choice PT extra-support wire could not be advanced across the ostium. Despite multiple attempts the procedure was terminated. A sheathogram was performed and six Anguillan Angio-Seal used to close the arteriotomy. Postprocedure orders given. Summary: Unsuccessful attempt at PCI to the ostial RCA due to high takeoff despite attempts with multiple catheters and wires. Plan: At this point we will consider referral to [place] see this can be approached via the left coronary system and via collateral filling of the right coronary artery in a retrograde fashion. Report dictated by SHADY Dela Cruz MD, MD June 15, 2024 09:33
--- NOTE | 2024-06-15 10:00 | NUR ---
RE: HANDOFF REPORT RECEIVED REPORT FROM AROLDO DESAI RN AT PATIENT BEDSIDE USING SBAR. PATIENT S/P LHC, DRESSING TO RIGHT GROIN DRY/INTACT. NO BLEEDING OR HEMATOMA NOTED. AREA SOFT/NONTENDER. PATIENT SPOUSE AT BEDSIDE.
--- NOTE | 2024-06-15 14:00 | NUR ---
PATIENT DISCHARGED FROM FACILITY VIA WHEELCHAIR BY JOS PURI AND ASSISTED INTO PRIVATE VEHICLE DRIVEN BY SPOUSE
== END 2024-06-15 14:00 | disposition home or self-care (01) ==
LOC: DAH 05:44
PROVIDERS: ATTEND Internal Medicine Cardiovascular Disease
DX: R94.39 Abnormal result of other cardiovascular function study (principal); I25.118 Atherosclerotic heart disease of native coronary artery with other forms of angina pectoris; I45.10 Unspecified right bundle-branch block; I35.0 Nonrheumatic aortic (valve) stenosis; I35.1 Nonrheumatic aortic (valve) insufficiency; R93.1 Abnormal findings on diagnostic imaging of heart and coronary circulation; E11.9 Type 2 diabetes mellitus without complications; G47.33 Obstructive sleep apnea (adult) (pediatric); I73.00 Raynaud's syndrome without gangrene; Z79.899 Other long term (current) drug therapy; Z95.1 Presence of aortocoronary bypass graft; Z98.890 Other specified postprocedural states; Z79.01 Long term (current) use of anticoagulants; Z88.8 Allergy status to other drugs, medicaments and biological substances; Z82.49 Family history of ischemic heart disease and other diseases of the circulatory system
CPT/HCPCS: 80048; 83880; 85025; 85610; 85730; 81003; 36415; 71045; 93005; 93455; 85347; C1769; C1894; C1760 ×2; Q9965 ×2; J3010; J3490; J7030; J2919; J1644 ×2; J2250; Q9967; A4215; A4222; A4221; A4663; A4216; A4606; C1887 ×10; A4223 ×3; 93454; J0461

== ENCOUNTER 2025-01-11 06:36 | Day surgery (SDC) | payer MEDICARE ==
[2025-01-05 08:28] LABS: IMMATURE GRANULOCYTE ABSOLUTE 0.06 K/uL (0-1); NUCLEATED RED BLOOD CELLS 0.0 % (0.0-0.19); PLATELET COUNT (AUTO) 183 K/uL (130-400); RED BLOOD CELL COUNT(AUTO) 4.62 MIL/uL (4.50-6.20); RED CELL DISTRIBUTION WIDTH 14.7 % (11.0-15.5); WHITE BLOOD COUNT (AUTO) 6.8 K/uL (4.8-10.8)
[2025-01-05 08:29] LABS: APPEARANCE,URINE CLEAR (CLEAR); GLUCOSE, URINE (UA) NEGATIVE (NEGATIVE); LEUKOCYTE ESTERASE ,URINE NEGATIVE Leu/uL (NEGATIVE); NITRATE,URINE NEGATIVE (NEGATIVE); OCCULT BLOOD,URINE NEGATIVE (NEGATIVE)
[2025-01-05 08:38] LABS: INR 1.08 (0.85-1.15)
[2025-01-05 08:40] LABS: CREATININE 1.3 mg/dL (0.5-1.3); GLOMERULAR FILTR. RATE CALC 55.0 mL/min (>90); GLUCOSE,RANDOM 116.0 mg/dL (70-105); SODIUM SERUM 139.0 mmol/L (136-145); UREA NITROGEN, BLOOD 19.0 mg/dL (7-18)
[2025-01-05 08:41] LABS: ADD UA MICROSCOPIC NO
--- NOTE | 2025-01-05 08:56 | EKG ---
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
[2025-01-05 09:05] VITALS: BP 131/55; PULSE 42; RESP 13; TEMP 97.4
--- NOTE | 2025-01-05 12:50 | HMCIMG ---
STUDY: X-RAY OF THE CHEST, 1 VIEW HISTORY: Preoperative evaluation. TECHNIQUE: A single frontal view of the chest is submitted for interpretation. COMPARISON: None provided. FINDINGS: Pulmonary reyes: Mild central pulmonary vascular congestion is present. No focal consolidation, pulmonary edema, or discrete pulmonary nodules are identified. Cardiac silhouette: Mild cardiomegaly is present. Cardiac contours are otherwise preserved. Mediastinum and chris: Mediastinal contours are within normal limits. Hilar structures are unremarkable. Osseous structures: Median sternotomy wires are in place, compatible with prior cardiac surgery. No acute osseous abnormality is identified. Miscellaneous: No pleural effusion or pneumothorax is seen. Costophrenic angles are clear bilaterally. No subdiaphragmatic free air is identified. IMPRESSION: * Mild cardiomegaly with mild central pulmonary vascular congestion. * Post sternotomy changes, compatible with prior cardiac surgery. * No focal airspace disease, sizable pleural effusion, or pneumothorax identified for preoperative assessment. /[place]
--- NOTE | 2025-01-10 10:21 | NUR ---
REPORT REPORTED BMP/CXR AND HR TO NEIDA RUTH NP. OK TO PROCEED
[2025-01-11] VITALS (9 sets, daily range): BP systolic 119–140; BP diastolic 49–63; PULSE 47–66; RESP 13–19; TEMP 97.4–98.1
[~2025-01-11] VITALS: Ht 177.8 cm; Wt 103.4 kg
[~2025-01-11 06:36] MED LIST changes: +DOXY50TA PO; +FLUT16H NASAL; -RANO500T6 PO
[2025-01-11] MEDS: 0.9%NACL 1000ML 1,000 ML IV SCH (07:37)
[2025-01-11] MEDS ORDERED: NITROGLYCERIN 50MG VIAL ONE (09:37)
[2025-01-11] MEDS ORDERED: HEParin-NS 1,000 UNIT/500 ML 1,000 ML IV ONE (09:37)
[2025-01-11] MEDS ORDERED: LIDOCAINE HCL 400MG/20ML VIAL ONE (09:37)
[2025-01-11] MEDS ORDERED: IOHEXOL 350 MG/ML 100ML INFUS..BTL IV ONE (09:38)
[2025-01-11] MEDS ORDERED: MIDAZOLAM HCL 1 MG/ML 2ML VIAL ONE (09:43)
[2025-01-11] MEDS ORDERED: ATROPINE 1MG SYG IVP ONE (11:03)
--- NOTE | 2025-01-11 11:46 | PRN ---
Cath Procedure Report CATH PROCEDURE REPORT CARDIAC CATHETERIZATION REPORT Date of Service: Jan 11, 2025 Right and left heart catheterization report After informed consent the patient was prepped and draped in the usual fashion. He received a total of 17 cc of 2% xylocaine in the right inguinal area. A six Tuvaluan he has with introduced into the right femoral artery using modified Seldinger technique. Seven [place] sheath was introduced into the right femoral vein using modified Seldinger technique. A Arjay-Lawanda catheter was advanced under fluoroscopic guidance to the left pulmonary artery. Wedge pressure and PA pressures were measured. A pigtail catheter was then advanced over guidewire to the aortic root. Initial attempts to cross the valve which was heavily calcified were unsuccessful. The J-wire was replaced with a straight wire which successfully cross the valve. The pigtail catheter was advanced and wire was removed. Hemodynamics measured. Including simultaneous wedge and EDP measurements. No ventriculogram was performed as left ventricular end-diastolic pressure was 27 mm Hg. A pullback with continuous hemodynamic monitoring was performed and catheter was removed. Thermodilution cardiac outputs were measured. Pullback with the Arjay-Lawanda catheter measuring RV and RA pressures was performed. A Carmelo four left six Tuvaluan diagnostic catheter was then advanced over guidewire to the aortic root. Wire was removed and catheter engaged into the left main coronary artery. The left coronary system was visualized in multiple planes the catheter was removed. A Carmelo four right six Tuvaluan diagnostic catheter was advanced over guidewire to the aortic root. Wire was engaged into the saphenous graft to the right coronary artery which was visualized. Attempts to engage the high takeoff RCA and obtuse marginal artery with this catheter were unsuccessful as was engaging into the internal mammary artery. The catheter was removed and a six Tuvaluan IMT catheter was then advanced over guidewire to the aortic root. The catheter was manipulated to the subclavian artery and the wire was removed. Catheter was then engaged into the internal mammary artery graft which was visualized in multiple planes. The catheter was then manipulated to the origin of the eagle right coronary artery which was sub selectively visualized. The catheter was removed and a six Tuvaluan AR1 diagnostic catheter was advanced over guidewire to the aortic root. Wire was removed and catheter engaged into the origin of the saphenous graft to the obtuse marginal artery. The catheter was removed. Findings: There was a 30 mm peak gradient across the calcified aortic valve. Cardiac output was 5.38 with an index of 2.44. There was no gradient between the left ventricular end-diastolic pressure and wedge pressure both of which were elevated at 27 mm Hg. The eagle right coronary artery has a 50% mid InStent restenosis. The PDA and posterolateral branches were poorly visualized with a subselective view. The left main coronary artery is free of obstruction the left anterior descending artery is totally occluded after the 1st diagonal branch. There was a patent HAILE graft to the LAD. The mid LAD has a 70% stenosis of the apical LAD has an 80% stenosis. The 1st diagonal artery has a 70% proximal stenosis. The ramus branch has a 70% proximal stenosis. The circumflex artery is a nondominant vessel and there was a patent vein graft to the 1st obtuse marginal artery. This has a 40% stenosis in one of the two branches of this vessel. In addition the vein graft has a 50% ostial stenosis. 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 Attempts to engage the HAILE catheter with a six Tuvaluan HAILE guide were unsuccessful. This is due to the acute takeoff of the HAILE graft. No IMT guide catheter was available. Sheathogram was performed and six Tuvaluan Angio-Seal closure device was used to close the femoral arteriotomy. A Vascade was used to close the venous arteriotomy. The procedure was well tolerated without complications. Summary: The patient has moderate aortic stenosis no evidence of mitral stenosis. Elevated left ventricular end-diastolic pressure. There was a patent HAILE graft to the LAD with 70% mid and 80% distal stenosis of the ramus branch has a 70% proximal stenosis. There was a patent vein graft to the obtuse marginal artery with a 50% ostial stenosis. 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 I will plan on referring the patient back to [place] see if they are able to access the internal mammary artery graft to dilate the mid LAD which was felt to be the culprit vessel. Report dictated by SHADY Dela Cruz MD, MD Jan 11, 2025 11:46
== END 2025-01-11 15:30 | disposition home or self-care (01) ==
LOC: DAH 06:36
PROVIDERS: ATTEND Internal Medicine Cardiovascular Disease
DX: R94.39 Abnormal result of other cardiovascular function study (principal); I25.10 Atherosclerotic heart disease of native coronary artery without angina pectoris; I35.0 Nonrheumatic aortic (valve) stenosis; G47.33 Obstructive sleep apnea (adult) (pediatric); E11.22 Type 2 diabetes mellitus with diabetic chronic kidney disease; N18.31 Chronic kidney disease, stage 3a; Z79.82 Long term (current) use of aspirin; Z82.49 Family history of ischemic heart disease and other diseases of the circulatory system; Z91.041 Radiographic dye allergy status; Z79.899 Other long term (current) drug therapy; Z98.890 Other specified postprocedural states
CPT/HCPCS: 80048; 83880; 85025; 85610; 85730; 81003; 36415; 71045; 93005; 99156; 99157 ×5; 93461; Q9965 ×2; A4223 ×3; C1769; C1887 ×2; C1894 ×2; C1760 ×2; J1200; J3490 ×2; J7030; J2919; J1644 ×3; J2250; Q9967; A4215; A4222; A4221; A4663; A4216; A4606; J0461